=== PATIENT | male | born 1935 | race Caucasian/White ===

== ENCOUNTER → 2017-01-13 | Outpatient (CLI) | payer MEDICARE, OTHER ==
--- NOTE | 2017-01-14 07:52 | SP ---
DATE OF PROCEDURE: 01/13/2017 This is an outpatient study requested for 81-year-old gentleman with history of seizures, but curre ntly not on any medications for seizure control. DESCRIPTION OF PROCEDURE: Routine EEG was recorded digitally. Ljkhw-tw-agiee and gqsbu-eg-xpw inder ages were recorded and reviewed. All impedances were measured and recorded. Cap electrodes were pl aced in accordance with International 10-20 system of electrode placement. FINDINGS: Symmetrically distributed background activity of low to medium amplitude ranging in frequ ency between 8 to 10 cycles per second was seen in the awake state. This activity attenuates with e ye opening. Photic stimulation produces no definite driving. No definite epileptiform transients w ere seen. No signs of ongoing electrographic seizures or lateralized slowing. The patient gets drowsy, background rhythm gets slightly less organized. Intermittent slowing of ba ckground 4 to 6 cycles per second was seen. No epileptiform transients were seen. No signs of ongoing electrographic seizures or lateralized sl owing. IMPRESSION: Normal study. Please correlate clinically. Dictated By: ANUPAMA COWAN/JASE Conf#: [id number] DID#: [id number]
== END | disposition home or self-care (01) ==
LOC: EEG 10:31
PROVIDERS: ATTEND Internal Medicine
DX: G40.109 Localization-related (focal) (partial) symptomatic epilepsy and epileptic syndromes with simple partial seizures, not intractable, without status epilepticus (principal)
CPT/HCPCS: 95819